=== PATIENT | male | born 1980 | race Two or more races ===

== ENCOUNTER 2016-10-18 09:36 | Inpatient (IN) | payer BC ==
[2016-10-18 10:04] VITALS: BMI 29.5
--- NOTE | 2016-10-18 10:12 | HP ---
CIWA Score - CIWA Score Nausea/Vomitin-Mild Nausea/No Vomiting Muscle Tremors: 4-Moderate,w/Arms Extend Anxiety: 4-Mod. Anxious/Guarded Agitation: 1-Slight > Activity Paroxysmal Sweats: 1-Minimal Palms Moist Orientation: 1-Uncertain about Date Tacttile Disturbances: 0-None Auditory Disturbances: 1-Very Mild Visual Disturbances: 1-Very Mild Sensitivity Headache: 2-Mild CIWA-Ar Total Score: 16 Admission ROS BHS - HPI Chief Complaint: I want to stop using drugs - I can't stop, I have too much stress Allergies/Adverse Reactions: Allergies Allergy/AdvReac Type Severity Reaction Status Date / Time No Known Allergies Allergy Verified 09/01/12 13:43 History of Present Illness: 36 yo gentleman here for detox from alcohol, also using cocaine and marijuana - previously here for detox 2012. No seizures. Exam Limitations: Clinical Condition - Ebola screening Have you traveled outside of the country in the last 21 days: No Have you had contact with anyone from an Ebola affected area: No Have you been sick,other than usual withdrawal symptoms: No Do you have a fever: No - Review of Systems Constitutional: Chills, Loss of Appetite, Malaise, Changes in sleep, Weakness EENT: reports: Blurred Vision Respiratory: reports: No Symptoms reported Cardiac: reports: No Symptoms Reported GI: reports: Nausea, Poor Appetite, Indigestion : reports: Frequency Musculoskeletal: reports: No Symptoms Reported Integumentary: reports: No Symptoms Reported Neuro: reports: Headache, Tremors Endocrine: reports: No Symptoms Reported Hematology: reports: No Symptoms Reported Psychiatric: reports: Judgement Intact, Mood/Affect Appropiate, Anxious Other Systems: Reviewed and Negative Patient History - Patient Medical History Hx Anemia: No Hx Asthma: No Hx Chronic Obstructive Pulmonary Disease (COPD): No Hx Cancer: No Hx Cardiac Disorders: No Hx Congestive Heart Failure: No Hx Hypertension: No Hx Hypercholesterolemia: No Hx Pacemaker: No HX Cerebrovascular Accident: No Hx Seizures: No Hx Dementia: No Hx Diabetes: No Hx Gastrointestinal Disorders: No Hx Liver Disease: No Hx Genitourinary Disorders: No Hx Sexually Transmitted Disorders: No Hx Renal Disease (ESRD): No Hx Thyroid Disease: No Hx Human Immunodeficiency Virus (HIV): No Hx Hepatitis C: No Hx Depression: Yes (no med) Hx Suicide Attempt: Yes (years ago thoughts of jumping off bridge ) Hx Bipolar Disorder: No Hx Schizophrenia: No - Patient Surgical History Past Surgical History: No Hx Neurologic Surgery: No Hx Cataract Extraction: No Hx Cardiac Surgery: No Hx Lung Surgery: No Hx Breast Surgery: No Hx Breast Biopsy: No Hx Abdominal Surgery: Yes (hernia repair 2008) Hx Appendectomy: No Hx Cholecystectomy: No Hx Genitourinary Surgery: No Hx Section: No Hx Orthopedic Surgery: No Anesthesia Reaction: No - PPD History Previous Implant?: Yes (BCG vax) PPD to be Administered?: No - Reproductive History Patient is a Female of Child Bearing Age (11 -55 yrs old): No (male) - Smoking Cessation Smoking history: Current every day smoker Have you smoked in the past 12 months: Yes Aproximately how many cigarettes per day: 20 Hx Chewing Tobacco Use: No Initiated information on smoking cessation: Yes 'Breaking Loose' booklet given: 10/18/16 (give on floor) - Substance & Tx. History Hx Alcohol Use: Yes Hx Substance Use: Yes Substance Use Type: Alcohol, Cocaine, Marijuana Hx Substance Use Treatment: Yes (detox, rehab) - Substances Abused Alcohol Route: Oral Frequency: Daily Amount used: 18 twelve oz beers; 1 pint liquor Age of first use: 17 Date of Last Use: 10/17/16 Cocaine Route: Inhalation Frequency: 3-6 times per week Amount used: $40 Age of first use: 17 Date of Last Use: 10/15/16 Marijuana/Hashish Route: Smoking Frequency: Daily Amount used: 3 joints Age of first use: 14 Date of Last Use: 10/18/16 Family Disease History - Family Disease History Family Disease History: Other: Father (alive, healthy), Mother (alive, healthy) , Sister (one - healthy) Admission Physical Exam S - Vital Signs Vital Signs: Vital Signs - 24 hr 10/18/16 10:02 Temperature 96.6 F L Pulse Rate 64 Respiratory 20 Rate Blood Pressure 107/62 - Physical General Appearance: Yes: Nourished, Appropriately Dressed, Mild Distress, Anxious HEENTM: Yes: Hearing grossly Normal, Normal ENT Inspection, Normocephalic, Normal Voice, Pharynx Normal Respiratory: Yes: Normal Breath Sounds, No Respiratory Distress Neck: Yes: No masses,lesions,Nodules, Supple Breast: Yes: Breast Exam Deferred Cardiology: Yes: Regular Rhythm, Regular Rate Abdominal: Yes: Soft Genitourinary: Yes: Frequency Back: Yes: Normal Inspection Musculoskeletal: Yes: full range of Motion, Gait Steady Extremities: Yes: Normal Inspection, Normal Range of Motion Neurological: Yes: Alert, Normal Mood/Affect, Normal Response Integumentary: Yes: Normal Color, Warm Lymphatic: Yes: Within Normal Limits - Diagnostic (1) Nicotine dependence Current Visit: Yes Status: Chronic Qualifiers: Nicotine product type: cigarettes Substance use status: uncomplicated Qualified Code(s): F17.210 - Nicotine dependence, cigarettes, uncomplicated (2) Cannabis dependence Current Visit: Yes Status: Chronic (3) Alcohol dependence Current Visit: Yes Status: Active (4) Cocaine dependence Current Visit: Yes Status: Active (5) PPD positive Current Visit: Yes Status: Chronic Comment: bcg vaccination Cleared for Admission [facility] - Detox or Rehab [facility] Level of Care: Medically Managed Detox Regimen/Protocol: Librium [facility] Breath Alcohol Content Breath Alcohol Content: 0 Urine Drug Screen - Results Drug Screen Negative: No Urine Drug Screen Results: THC-Marijuana
[2016-10-18] MEDS ORDERED: MAGNESIUM CITRATE 300 ML BOTTLE PO PRN (10:16)
[2016-10-18] MEDS ORDERED: NICOTINE POLACRILEX 4 MG GUM BUC PRN (10:16)
[2016-10-18] MEDS ORDERED: MAGNESIUM HYDROX 2400MG/30ML ORAL SUSPENSION 30 ML CUP PO PRN (10:16)
[2016-10-18] MEDS ORDERED: IBUPROFEN 400 MG TABLET (FP) PO PRN (10:16)
[2016-10-18] MEDS ORDERED: LOPERAMIDE HCL 2 MG CAPSULE PO PRN (10:16)
[2016-10-18] MEDS ORDERED: guaiFENesin/D-METHORPHAN HB 10 ML UNIT-DOSE CUPS PO PRN (10:16)
[2016-10-18] MEDS ORDERED: ACETAMINOPHEN 325 MG TABLET (FP) PO PRN (10:16)
[2016-10-18] MEDS ORDERED: MAG HYDROX/AL HYDROX/SIMETH 30 ML UNIT-DOSE CUP PO PRN (10:16)
[2016-10-18] MEDS ORDERED: P-EPHED 60MG/TRIPROLIDI 2.5MG TABLET PO PRN (10:16)
[2016-10-18] MEDS ORDERED: hydrOXYzine PAMOATE 50 MG CAPSULE (FP) PO PRN (10:16)
[2016-10-18] MEDS ORDERED: chlordiazePOXIDE HCL 25 MG CAPSULE PO PRN (10:16)
[2016-10-18] MEDS ORDERED: MENTHOL/PHENOL 1 EACH UD MM PRN (10:16)
[2016-10-18] MEDS ORDERED: chlordiazePOXIDE HCL 25 MG CAPSULE PO ONE (12:00)
[2016-10-18 15:28] LABS: URINE APPEARANCE CLEAR; URINE BILIRUBIN NEGATIVE (NEGATIVE); URINE BLOOD NEGATIVE (NEGATIVE); URINE COLOR COLORLESS; URINE GLUCOSE (UA) NEGATIVE (NEGATIVE); URINE KETONE NEGATIVE (NEGATIVE); URINE LEUK ESTERASE NEGATIVE (NEGATIVE); URINE NITRITE NEGATIVE (NEGATIVE); URINE PROTEIN NEGATIVE (NEGATIVE); URINE UROBILINOGEN NEGATIVE mg/dL (0.2-1.0)
[2016-10-18] MEDS: chlordiazePOXIDE HCL 25 MG CAPSULE PO SCH ×2 (17:19→22:43)
[2016-10-18] MEDS: THIAMINE HCL 100 MG TABLET (FP) PO SCH (22:43)
[2016-10-18] MEDS: diphenhydrAMINE HCL 50 MG CAPSULE PO PRN (22:43)
[2016-10-19] MEDS: chlordiazePOXIDE HCL 25 MG CAPSULE PO SCH ×4 (05:30→22:37)
[2016-10-19 10:24] LABS: MCHC 33.5 g/dl (32.0-35.9); MEAN CELL VOLUME 89.4 fl (80-96); MEAN PLT VOLUME 9.5 fl (7.5-11.1); PLATELET COUNT 279 K/MM3 (134-434); RDW 13.7 % (11.9-15.9); WHITE BLOOD COUNT 8.7 K/mm3 (4.0-10.0)
[2016-10-19 10:54] LABS: ALBUMIN 4.1 g/dl (3.4-5.0); ALK PHOS 104 U/L (45-117); ANION GAP 7 (8-16); BILIRUBIN,TOTAL 0.4 mg/dL (0.2-1.0); CALCIUM 9.5 mg/dL (8.5-10.1); CO2 25 mmol/L (21-32); GLUCOSE,RANDOM 95 mg/dL (74-106); SGOT/AST 14 U/L (15-37); SGPT/ALT 24 U/L (12-78); TOT PROT 7.5 g/dl (6.4-8.2)
[2016-10-19] MEDS: PRENATAL VITAMINS W/ FOLIC ACID TABLET (FP) PO SCH (11:26)
--- NOTE | 2016-10-19 13:21 | PN ---
S CIWA - CIWA Score Nausea/Vomitin Muscle Tremors: 4-Moderate,w/Arms Extend Anxiety: 4-Mod. Anxious/Guarded Agitation: 4-Moderately Restless Paroxysmal Sweats: 3 Orientation: 0-Oriented Tacttile Disturbances: 1-Very Mild Itch/Numbness Auditory Disturbances: 0-None Visual Disturbances: 0-None Headache: 1-Very Mild CIWA-Ar Total Score: 20 BHS Progress Note (SOAP) Subjective: Anxious, restless, nausea, sweating, chills, tremor Objective: 10/19/16 13:19 Last Vital Signs Temp Pulse Resp BP Pulse Ox 97.6 F 66 18 102/72 10/19/16 10:00 10/19/16 10:00 10/19/16 10:00 10/19/16 10:00 Laboratory Tests 10/18/16 10/19/16 10/19/16 13:10 06:20 06:20 WBC 8.7 RBC 5.30 Hgb 15.9 Hct 47.4 MCV 89.4 MCH 30.0 MCHC 33.5 RDW 13.7 Plt Count 279 MPV 9.5 Sodium 137 Potassium 4.5 Chloride 105 Carbon Dioxide 25 Anion Gap 7 L BUN 11 Creatinine 1.0 Creat Clearance w eGFR > 60 Random Glucose 95 Calcium 9.5 Total Bilirubin 0.4 D AST 14 L D ALT 24 Alkaline Phosphatase 104 Total Protein 7.5 Albumin 4.1 D Urine Color Colorless Urine Appearance Clear Urine pH 6.0 Ur Specific [place] <= 1.005 Urine Protein Negative Urine Glucose (UA) Negative Urine Ketones Negative Urine Blood Negative Urine Nitrite Negative Urine Bilirubin Negative Urine Urobilinogen Negative Ur Leukocyte Esterase Negative Labs noted Assessment: 10/19/16 13:20 Withdrawal symptoms Plan: Continue detox Encouraged to drink lots of water for hydration
[2016-10-19] MEDS: diphenhydrAMINE HCL 50 MG CAPSULE PO PRN (22:37)
[2016-10-19] MEDS: THIAMINE HCL 100 MG TABLET (FP) PO SCH (22:37)
[2016-10-20] MEDS: chlordiazePOXIDE HCL 25 MG CAPSULE PO SCH ×2 (05:55→10:07)
--- NOTE | 2016-10-20 09:32 | CONSULT ---
[facility] Psychiatric Consult - Data Date of interview: 10/20/16 Admission source: [facility] Identifying data: Readmission to [facility] for this 36 y/o male seeking detox treatment on for alcohol,cocaine and marijuana dependence.Patient is without children,domiciled and self-employed. Substance Abuse History: Patient admits to an extensive history of substance dependence since age 14 for cannabis (4-5 joints/day),age 17 for cocaine/crack ( 200-300 dollars daily) and alcohol (18 beers + 2 pints of vodka daily).Smokes one pack of cigarettes daily.Last usage : 10/18/16. Medical History: Patient endorses good general health. Psychiatric History: History of one psychiatric admission to [facility] eight years ago.Diagnosed with MDD and ADHD.No reported history of OPD care.Mr De Leon admits to total non adherence to his prescribed prozac and " something else " for years.Still NOT interested in psychotropic medications.Patient reports a remote history of suicide attempts (via overdose with drugs) and past ideation to jump off a bridge years ago (no attempt). Physical/Sexual Abuse/Trauma History: Patient denies. Additional Comment: Urine Drug Screen Results: THC-Marijuana.Noted. Mental Status Exam - Mental Status Exam Alert and Oriented to: Time, Place, Person Cognitive Function: Good Patient Appearance: Well Groomed (tattoos on left arm and right forearm) Mood: Apprehensive Affect: Appropriate, Normal Range Patient Behavior: Fatigued, Appropriate, Cooperative Speech Pattern: Clear Voice Loudness: Normal Thought Process: Goal Oriented Thought Disorder: Not Present Hallucinations: Denies Suicidal Ideation: Denies Homicidal Ideation: Denies Insight/Judgement: Poor Sleep: Well Appetite: Good Muscle strength/Tone: Normal Gait/Station: Normal Psychiatric Findings - Problem List ([place] 1, 2,3) (1) Alcohol dependence Current Visit: Yes Status: Active (2) Cocaine dependence Current Visit: Yes Status: Active (3) Cannabis dependence Current Visit: Yes Status: Acute (4) Nicotine dependence Current Visit: Yes Status: Acute Qualifiers: Nicotine product type: cigarettes Substance use status: uncomplicated Qualified Code(s): F17.210 - Nicotine dependence, cigarettes, uncomplicated (5) PPD positive, treated Current Visit: Yes Status: Chronic - Initial Treatment Plan Initial Treatment Plan: Psychoeducation.Detoxification in progress.Observation.
[2016-10-20] MEDS: PRENATAL VITAMINS W/ FOLIC ACID TABLET (FP) PO SCH (10:06)
--- NOTE | 2016-10-20 11:33 | EKG ---
Test Reason : Blood Pressure : / mmHG Vent. Rate : 067 BPM Atrial Rate : 067 BPM P-R Int : 144 ms QRS Dur : 080 ms QT Int : 414 ms P-R-T Axes : 055 067 043 degrees QTc Int : 437 ms NORMAL SINUS RHYTHM EARLY REPOLARIZATION NORMAL ECG NO PREVIOUS ECGS AVAILABLE Confirmed by JANICE NGUYEN MD ([id number]) on 10/20/2016 11:33:21 AM Referred By: Confirmed By:JANICE NGUYEN MD
--- NOTE | 2016-10-20 11:34 | PN ---
[facility] CIWA - CIWA Score Nausea/Vomitin-No Nausea/No Vomiting Muscle Tremors: 4-Moderate,w/Arms Extend Anxiety: 4-Mod. Anxious/Guarded Agitation: 1-Slight > Activity Paroxysmal Sweats: 3 Orientation: 0-Oriented Tacttile Disturbances: 3-Moderate Itch/Numb/Burn Auditory Disturbances: 0-None Visual Disturbances: 0-None Headache: 3-Moderate CIWA-Ar Total Score: 18 BHS Progress Note (SOAP) Subjective: Anxious, Tremors, H/A. Objective: PT. A & O X 3, OBSERVED AMBULATING ON UNIT. NO ACUTE DISTRESS. 10/20/16 11:32 Vital Signs Temperature 98.0 F 10/20/16 09:10 Pulse Rate 60 10/20/16 09:10 Respiratory Rate 18 10/20/16 09:10 Blood Pressure 111/74 10/20/16 09:10 O2 Sat by Pulse Oximetry (%) Laboratory Tests 10/18/16 10/19/16 10/19/16 13:10 06:20 06:20 WBC 8.7 RBC 5.30 Hgb 15.9 Hct 47.4 MCV 89.4 MCH 30.0 MCHC 33.5 RDW 13.7 Plt Count 279 MPV 9.5 Sodium 137 Potassium 4.5 Chloride 105 Carbon Dioxide 25 Anion Gap 7 L BUN 11 Creatinine 1.0 Creat Clearance w eGFR > 60 Random Glucose 95 Calcium 9.5 Total Bilirubin 0.4 D AST 14 L D ALT 24 Alkaline Phosphatase 104 Total Protein 7.5 Albumin 4.1 D Urine Color Colorless Urine Appearance Clear Urine pH 6.0 Ur Specific [place] <= 1.005 Urine Protein Negative Urine Glucose (UA) Negative Urine Ketones Negative Urine Blood Negative Urine Nitrite Negative Urine Bilirubin Negative Urine Urobilinogen Negative Ur Leukocyte Esterase Negative RPR Titer 10/19/16 06:20 WBC RBC Hgb Hct MCV MCH MCHC RDW Plt Count MPV Sodium Potassium Chloride Carbon Dioxide Anion Gap BUN Creatinine Creat Clearance w eGFR Random Glucose Calcium Total Bilirubin AST ALT Alkaline Phosphatase Total Protein Albumin Urine Color Urine Appearance Urine pH Ur Specific [place] Urine Protein Urine Glucose (UA) Urine Ketones Urine Blood Urine Nitrite Urine Bilirubin Urine Urobilinogen Ur Leukocyte Esterase RPR Titer Nonreactive LABS NOTED. Assessment: 10/20/16 11:33 WITHDRAWAL SYMPTOMS. Plan: CONTINUE DETOX.
[2016-10-20] MEDS ORDERED: chlordiazePOXIDE 5 MG CAPSULE PO SCH (17:00)
[2016-10-20 18:01] VITALS: BP 105/60; PULSE 60; TEMP 97.1
--- NOTE | 2016-10-20 18:02 | DS ---
[facility] Detox Discharge Summary Admission Date: 10/18/16 Discharge Date: 10/20/16 - History Present History: Alcohol Dependence, Cannabis Dependence, Cocaine Dependence Additional Comments: PT DECLINED TO COMPLETE DETOX STATING "I'M GOING BACK TO WORK". AND "WHAT YOU DON'T KNOW IS THAT I WAS CLEAN FOR NINE MONTHS THEN I RELAPSED AND I DON'T DO WELL WITH DETOX. I PREFER MEETINGS AND WORKING WITH SPONSORS". ALERT O X 3. NAD Pertinent Past History: HX DEPRESSION - Physical Exam Results Vital Signs: Vital Signs Temperature 95.7 F L 10/20/16 13:15 Pulse Rate 59 L 10/20/16 13:15 Respiratory Rate 18 10/20/16 13:15 Blood Pressure 113/75 10/20/16 13:15 O2 Sat by Pulse Oximetry (%) Pertinent Admission Physical Exam Findings: WITHDRAWAL SX - Treatment Hospital Course: Discharged Condition Good - Medication Discharge Medications: Ambulatory Orders NK [No Known Home Medication] 10/18/16 - Diagnosis (1) Nicotine dependence Current Visit: Yes Status: Acute Qualifiers: Nicotine product type: cigarettes Substance use status: in withdrawal Qualified Code(s): F17.213 - Nicotine dependence, cigarettes, with withdrawal (2) Alcohol dependence with uncomplicated withdrawal Current Visit: Yes Status: Acute (3) Cocaine dependence, uncomplicated Current Visit: Yes Status: Acute (4) Cannabis dependence, uncomplicated Current Visit: Yes Status: Acute - AMA Did Patient Leave Against Medical Advice: Yes (AMA)
[2016-10-21] MEDS ORDERED: chlordiazePOXIDE HCL 10 MG CAPSULE PO SCH (17:00)
== END 2016-10-20 17:53 | disposition left against medical advice (07) | DRG 894 ==
LOC: YASAS 09:36 → Y3N 11:21
PROVIDERS: ADMIT Internal Medicine; ATTEND Internal Medicine
PROC: HZ2ZZZZ Detoxification Services for Substance Abuse Treatment (ICD-10-PCS; principal; 2016-10-18)
DX: F10.230 Alcohol dependence with withdrawal, uncomplicated (principal); F14.20 Cocaine dependence, uncomplicated; F12.20 Cannabis dependence, uncomplicated; F17.210 Nicotine dependence, cigarettes, uncomplicated; R76.11 Nonspecific reaction to tuberculin skin test without active tuberculosis
CPT/HCPCS: 36415; 71020-TC; 80053; 81003; 85027; 86593; 93005; 93010